=== PATIENT | male | born 1960 | race Caucasian/White ===

== ENCOUNTER 2017-04-11 16:26 | Observation (INO) | payer BC ==
--- NOTE | 2017-04-11 17:13 | PDOC ---
History of Present Illness - General History Source: Patient - History of Present Illness Initial Comments: 04/11/17 17:18 Patient is a 56 y.o.male with a PMH of Atrial Fibrillation (on Eloquis and Metoprolol) who presents today c/o acute onset of palpitations, cough and weakness while driving. Patient states he pulled his car to side of the road and then drove slowly to the hospital. Patient denies any chest pain, shortness of breath, but does endorse diaphoresis. 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 At the time of his diagnosis patient noted he was drinking heavily and sleeping little. Patient notes he has not been sleeping for the past 2-3 days due to anxiety over life stressors. NKDA PMD: Dr. Johnston ([facility]) <Gita Valles - Last Filed: 04/11/17 20:56> <Parish Naqvi - Last Filed: 04/11/17 21:49> - General Chief Complaint: Palpitations Stated Complaint: Blood Pressure Problem Time Seen by Provider: 04/11/17 16:44 Past History - Past Medical History Cardiac Disorders: Yes (AF) COPD: No Diabetes: Yes HTN: Yes Hypercholesterolemia: Yes - Suicide/Smoking/Psychosocial Hx Smoking History: Former smoker Have you smoked in the past 12 months: No Information on smoking cessation initiated: No Hx Alcohol Use: No Drug/Substance Use Hx: No Substance Use Type: None <Gita Valles - Last Filed: 04/11/17 20:56> <Parish Naqvi - Last Filed: 04/11/17 21:49> - Past Medical History Allergies/Adverse Reactions: Allergies Allergy/AdvReac Type Severity Reaction Status Date / Time No Known Allergies Allergy Verified 04/11/17 18:00 Home Medications: Ambulatory Orders Atorvastatin Ca [Lipitor] 40 mg PO HS 04/11/17 Diltiazem HCl [Diltiazem 24Hr Cd] 240 mg PO DAILY 04/11/17 Escitalopram Oxalate [Lexapro -] 5 mg PO DAILY 04/11/17 Glipizide [Glipizide ER] 5 mg PO 04/11/17 Losartan/Hydrochlorothiazide [Losartan-Hctz 50-12.5 mg Tab] 1 each PO DAILY Metformin HCl [Glucophage] 1,000 mg PO BID 04/11/17 Metoprolol Tartrate 50 mg PO HS 04/11/17 Metoprolol Tartrate 100 mg PO AM 04/11/17 Ramipril 5 mg PO DAILY 04/11/17 Review of Systems - Review of Systems Constitutional: Yes: Diaphoresis. No: Fever Respiratory: No: Shortness of Breath Cardiac (ROS): Yes: Palpitations. No: Chest Pain, Lightheadedness, Chest Tightness ABD/GI: No: Constipated, Diarrhea, Nausea, Vomiting <Gita Valles - Last Filed: 04/11/17 20:56> *Physical Exam - Vital Signs Last Vital Signs Temp Pulse Resp BP Pulse Ox 98.4 F 78 20 150/88 97 04/11/17 17:07 04/11/17 17:07 04/11/17 17:07 04/11/17 17:07 04/11/17 17:07 - Physical Exam General Appearance: Yes: Nourished, Obese HEENT: positive: EOMI, CELESTE Respiratory/Chest: positive: Lungs Clear, Normal Breath Sounds. negative: Labored Respiration, Rapid RR, Crackles, Rales, Rhonchi, Stridor, Wheezing Cardiovascular: positive: S1, S2. negative: Edema, JVD, Murmur, Tachycardia Gastrointestinal/Abdominal: positive: Normal Bowel Sounds, Soft Extremity: positive: Normal Capillary Refill, Normal Inspection Integumentary: positive: Normal Color, Dry, Warm Neurologic: positive: renewable energy engineer II-XII NML intact, Fully Oriented, Alert <Gita Valles - Last Filed: 04/11/17 20:56> - Vital Signs Last Vital Signs Temp Pulse Resp BP Pulse Ox 98.4 F 70 19 116/84 96 04/11/17 17:07 04/11/17 19:39 04/11/17 19:39 04/11/17 19:39 04/11/17 19:39 <Parish Naqvi - Last Filed: 04/11/17 21:49> ED Treatment Course - LABORATORY CBC & Chemistry Diagram: 04/11/17 17:50 04/11/17 17:50 <Gita Valles - Last Filed: 04/11/17 20:56> - LABORATORY CBC & Chemistry Diagram: 04/11/17 17:50 04/11/17 17:50 - ADDITIONAL ORDERS Additional order review: Laboratory Results 04/11/17 04/11/17 17:50 17:50 PT with INR 12.30 H INR 1.09 PTT (Actin FS) 27.3 Sodium 136 Potassium 3.6 Chloride 100 Carbon Dioxide 27 Anion Gap 9 BUN 18 Creatinine 0.9 Creat Clearance w eGFR > 60 Random Glucose 263 H Calcium 8.8 Total Bilirubin 0.6 AST 16 ALT 39 Alkaline Phosphatase 72 Creatine Kinase 114 Troponin I 0.05 Total Protein 7.5 Albumin 4.1 04/11/17 17:50 RBC 5.03 MCV 83.4 MCHC 34.2 RDW 14.9 MPV 9.7 Neutrophils % 68.7 Lymphocytes % 18.6 Monocytes % 9.3 Eosinophils % 2.5 Basophils % 0.9 - RADIOLOGY Radiology Studies Ordered: Category Date Time Status CHEST X-RAY PORTABLE* [RAD] Stat Radiology 04/11/17 20:10 Ordered - Medications Given in the ED: ED Medications Discontinued Medications Generic Name Dose Route Start Last Admin Trade Name Freq PRN Reason Stop Dose Admin Aspirin 325 mg 04/11/17 19:42 04/11/17 20:03 Asa - PO 04/11/17 19:43 Not Given ONCE ONE <Parish Naqvi - Last Filed: 04/11/17 21:49> Medical Decision Making - Medical Decision Making 04/11/17 20:40 Patient is a 56 y.o. male with a PMH of AFib who presents with palpitations and lightheadedness. Initial EKG shows A flutter HR 77 ST depressions in Leads V4, V5, V6. 04/11/17 20:54 04/11/17 20:56 <Gita Valles - Last Filed: 04/11/17 20:56> *DC/Admit/Observation/Transfer <Gita Valles - Last Filed: 04/11/17 20:56> - Discharge Dispostion Admit: Yes <Parish Naqvi - Last Filed: 04/11/17 21:49> Diagnosis at time of Disposition: Abnormal EKG, Near syncope Atrial flutter Qualifiers: Atrial flutter type: unspecified Qualified Code(s): I48.92 - Unspecified atrial flutter - Discharge Dispostion Condition at time of disposition: Fair - Referrals Referrals: Aaron Johnston [Primary Care Provider] - - Patient Instructions - Post Discharge Activity
--- NOTE | 2017-04-11 18:10 | PDOC ---
History of Present Illness - General Chief Complaint: Palpitations Stated Complaint: Blood Pressure Problem Time Seen by Provider: 04/11/17 16:44 History Source: Patient Past History - Past Medical History Allergies/Adverse Reactions: Allergies Allergy/AdvReac Type Severity Reaction Status Date / Time No Known Allergies Allergy Verified 04/11/17 18:00 Cardiac Disorders: Yes (AF) COPD: No Diabetes: Yes HTN: Yes Hypercholesterolemia: Yes - Suicide/Smoking/Psychosocial Hx Smoking History: Former smoker Have you smoked in the past 12 months: No Information on smoking cessation initiated: No Hx Alcohol Use: No Drug/Substance Use Hx: No Substance Use Type: None *Physical Exam - Vital Signs Last Vital Signs Temp Pulse Resp BP Pulse Ox 98.4 F 78 20 150/88 97 04/11/17 17:07 04/11/17 17:07 04/11/17 17:07 04/11/17 17:07 04/11/17 17:07 ED Treatment Course - LABORATORY CBC & Chemistry Diagram: 04/11/17 17:50 04/11/17 17:50 *DC/Admit/Observation/Transfer - Referrals Referrals: Aaron Johnston [Primary Care Provider] - - Patient Instructions - Post Discharge Activity
[2017-04-11 18:11] LABS: BASOPHIL 0.9 % (0-2.0); EOSINOPHIL 2.5 % (0-4.5); MCH 28.5 pg (25.7-33.7); MCHC 34.2 g/dl (32.0-35.9); MEAN CELL VOLUME 83.4 fl (80-96); MEAN PLT VOLUME 9.7 fl (7.5-11.1); NEUTROPHILS 68.7 % (42.8-82.8); PLATELET COUNT 240 K/MM3 (134-434); RDW 14.9 % (11.9-15.9); WHITE BLOOD COUNT 7.9 K/mm3 (4.0-10.0)
[2017-04-11 18:34] LABS: INR 1.09 (0.82-1.09); PROTHROMBIN TIME (PATIENT) 12.3 SEC (9.98-11.88)
[2017-04-11 18:37] LABS: ACTIVATED PTT 27.3 SECONDS (26.9-34.4)
--- NOTE | 2017-04-11 18:51 | PDOC ---
Attending Attestation - HPI HPI: 04/11/17 18:52 Pt is a 56 yo M with a PMHx of Atrial Fibrillation (on Eloquis), DM, HTN, HLD who presents to the ED with sudden onset of palpitations today. PCP: Dr. Johnston - Medical Decision Making 04/11/17 18:52 Documentation prepared by Margaret Walker, acting as medical biller for Parish Naqvi MD <Margaret Walker - Last Filed: 04/11/17 18:58> - Resident Resident Name: ReenaGita luu - ED Attending Attestation I have performed the following: I have examined & evaluated the patient, The case was reviewed & discussed with the resident, I agree w/resident's findings & plan, Exceptions are as noted - Physicial Exam PE: 04/11/17 20:35 In the ER, patient is awake and alert, afebrile, hemodynamically stable; nc, atr perrla, eomi cta rrr sft, nt, nd no LEs edema - Medical Decision Making 04/11/17 20:36 Patient is a 56-year-old male with history of atrial fibrillation on eliquis, diabetes and hypertension who presents to the ER after an episode of near- syncope, with palpitations and shortness of breath. In the ER, EKG reveals a flutter with variable conduction, at a heart rate of 77-85, with ST segment depressions in lateral leads which have resolved after. Of observation. CBC is within normal limit. CMP reveals moderate hyperglycemia without evidence of increased anion gap. First set of cardiac enzymes is normal. I suspect ACS. Patient refused aspirin at this time. Case discussed with cardiology. Will place on telemetry/of for further evaluation and treatment. <Parish Naqvi - Last Filed: 04/11/17 20:37>
[2017-04-11 18:56] LABS: ALBUMIN 4.1 g/dl (3.4-5.0); ANION GAP 9 (8-16); CALCIUM 8.8 mg/dL (8.5-10.1); CO2 27 mmol/L (21-32); GLUCOSE,RANDOM 263 mg/dL (74-106)
[2017-04-11 19:13] LABS: ALK PHOS 72 U/L (45-117); BILIRUBIN,TOTAL 0.6 mg/dL (0.2-1.0); CPK 114 IU/L (39-308); CREATININE 0.9 mg/dL (0.7-1.3); SGOT/AST 16 U/L (15-37); SGPT/ALT 39 U/L (12-78); TOT PROT 7.5 g/dl (6.4-8.2)
[2017-04-11 19:20] LABS: TROPONIN I 0.05 ng/ml (0.00-0.05)
[2017-04-11] MEDS ORDERED: ASPIRIN 325 MG TABLET PO ONE (19:42)
[2017-04-11] MEDS ORDERED: ASPIRIN 325 MG TABLET ONE (19:45)
--- NOTE | 2017-04-11 20:58 | HP ---
CHIEF COMPLAINT: Palpitations, Cough and Weakness PCP: Dr Johnston ([facility]) HISTORY OF PRESENT ILLNESS: This is a 56 y/o man with a PMHx of: Afib (on Eliquis, diagnosed 11/2016), HTN, HLD, DM, Anxiety. Who arrived to the ED with palpitations, cough and weakness while driving. Patient states that he began to feel his heart race, then became lightheaded. He reports pulling over, and allowing it to pass before continuing to the hospital. He denies having chest pain or SOB with the event. He does however report having insomnia for the last 2-3 days and feeling very anxious due to life stressors. He denies fever, chills, DAI, AP, N/V/D, constipation, dysuria. Patient reports having a nuclear stress test 1 yr ago, Echo earlier this year- he reports enlarged heart. ER course was notable for: (1) Chest Xray showed- limited exam without no acute cardiopulmonary disease (2) EKG shows A flutter HR 77 ST depressions in Leads V4, V5, V6. 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, [employer] Family History: Father: Pancreatic Ca, age 66 Mother: SD- stents, DM, alive Sister: Lung Ca, Sister: Breast Ca, alive Brother: Cardiomegaly Allergies No Known Allergies Allergy (Verified 04/11/17 18:00) HOME MEDICATIONS: Home Medications Medication Instructions Recorded Atorvastatin Ca [Lipitor] 40 mg PO HS 04/11/17 Diltiazem HCl [Diltiazem 24Hr Cd] 240 mg PO DAILY 04/11/17 Escitalopram Oxalate [Lexapro -] 5 mg PO DAILY 04/11/17 Glipizide [Glipizide ER] 5 mg PO 04/11/17 Losartan/Hydrochlorothiazide 1 each PO DAILY 04/11/17 [Losartan-Hctz 50-12.5 mg Tab] Metformin HCl [Glucophage] 1,000 mg PO BID 04/11/17 Metoprolol Tartrate 50 mg PO HS 04/11/17 Metoprolol Tartrate 100 mg PO AM 04/11/17 Ramipril 5 mg PO DAILY 04/11/17 REVIEW OF SYSTEMS CONSTITUTIONAL: generalized weakness, Absent: fever, chills, diaphoresis, malaise, loss of appetite, weight change HEENT: Absent: rhinorrhea, nasal congestion, throat pain, throat swelling, difficulty swallowing, mouth swelling, ear pain, eye pain, visual changes CARDIOVASCULAR: palpitations Absent: chest pain, syncope, irregular heart rate, lightheadedness, peripheral edema RESPIRATORY: cough Absent: shortness of breath, dyspnea with exertion, orthopnea, wheezing, stridor , hemoptysis GASTROINTESTINAL: Absent: abdominal pain, abdominal distension, nausea, vomiting, diarrhea, constipation, melena, hematochezia GENITOURINARY: Absent: dysuria, frequency, urgency, hesitancy, hematuria, flank pain, genital pain MUSCULOSKELETAL: Absent: myalgia, arthralgia, joint swelling, back pain, neck pain SKIN: Absent: rash, itching, pallor HEMATOLOGIC/IMMUNOLOGIC: Absent: easy bleeding, easy bruising, lymphadenopathy, frequent infections ENDOCRINE: Absent: unexplained weight gain, unexplained weight loss, heat intolerance, cold intolerance NEUROLOGIC: Absent: headache, focal weakness or paresthesias, dizziness, unsteady gait, seizure, mental status changes, bladder or bowel incontinence PSYCHIATRIC: Absent: anxiety, depression, suicidal or homicidal ideation, hallucinations. PHYSICAL EXAMINATION Vital Signs - 24 hr 04/11/17 04/11/17 17:07 19:39 Temperature 98.4 F Pulse Rate 78 Pulse Rate [ 70 Apical] Respiratory 20 19 Rate Blood Pressure 150/88 Blood Pressure 116/84 [Arm] O2 Sat by Pulse 97 96 Oximetry (%) GENERAL: Obese, awake, alert, and fully oriented, in no acute distress. HEAD: Normal with no signs of trauma. EYES: Pupils equal, round and reactive to light, extraocular movements intact, sclera anicteric, conjunctiva clear. No lid lag. EARS, NOSE, THROAT: Ears normal, nares patent, oropharynx clear without exudates. Moist mucous membranes. NECK: Normal range of motion, supple without lymphadenopathy, JVD, or masses. LUNGS: Breath sounds equal, clear to auscultation bilaterally. No wheezes, and no crackles. No accessory muscle use. HEART: Irregular rate and rhythm, normal S1 and S2 without murmur, rub or gallop. ABDOMEN: Soft, nontender, not distended, normoactive bowel sounds, no guarding, no rebound, no masses. No hepatomegaly or splenomegaly. MUSCULOSKELETAL: Normal range of motion at all joints. No bony deformities or tenderness. No CVA tenderness. UPPER EXTREMITIES: 2+ pulses, warm, well-perfused. No cyanosis. No clubbing. No peripheral edema. LOWER EXTREMITIES: 2+ pulses, warm, well-perfused. No calf tenderness. No peripheral edema. NEUROLOGICAL: Cranial nerves II-XII intact. Normal speech. Normal gait. PSYCHIATRIC: Cooperative. Good eye contact. Appropriate mood and affect. SKIN: Warm, dry, normal turgor, no rashes or lesions noted, normal capillary refill. Laboratory Results - last 24 hr 04/11/17 04/11/17 04/11/17 17:50 17:50 17:50 WBC 7.9 RBC 5.03 Hgb 14.4 Hct 42.0 MCV 83.4 MCH 28.5 MCHC 34.2 RDW 14.9 Plt Count 240 MPV 9.7 Neutrophils % 68.7 Lymphocytes % 18.6 Monocytes % 9.3 Eosinophils % 2.5 Basophils % 0.9 PT with INR 12.30 H INR 1.09 PTT (Actin FS) 27.3 Sodium 136 Potassium 3.6 Chloride 100 Carbon Dioxide 27 Anion Gap 9 BUN 18 Creatinine 0.9 Creat Clearance w eGFR > 60 Random Glucose 263 H Calcium 8.8 Magnesium Total Bilirubin 0.6 AST 16 ALT 39 Alkaline Phosphatase 72 Creatine Kinase 114 Troponin I 0.05 Total Protein 7.5 Albumin 4.1 04/11/17 19:30 WBC RBC Hgb Hct MCV MCH MCHC RDW Plt Count MPV Neutrophils % Lymphocytes % Monocytes % Eosinophils % Basophils % PT with INR INR PTT (Actin FS) Sodium Potassium Chloride Carbon Dioxide Anion Gap BUN Creatinine Creat Clearance w eGFR Random Glucose Calcium Magnesium 1.9 Total Bilirubin AST ALT Alkaline Phosphatase Creatine Kinase Troponin I Total Protein Albumin ASSESSMENT/PLAN: This is a 56 y/o man with a PMHx of: Afib (on Eliquis), HTN, HLD, DM. Placed on Tele Observation for Palpitations, Near Syncope for further evaluation of their emergent condition. FEN - Tolerates PO Fluids - Replete lytes prn - Low Na Diet Code Status: Full Code Dispo: Tele Observation Problem List - Problem (1) Palpitations Assessment/Plan: - Likely secondary to Afib, new aflutter vs Anxiety - Tele monitoring - Appreciate Cardiology Consult - Echo check wall motion - TSH - Asa Code(s): R00.2 - PALPITATIONS (2) Near syncope Assessment/Plan: - Likely secondary to Arrhythmia - Tele monitoring - Serial enzymes - Echo in am - Appreciate Cardiology Consult - Asa - EKG showed Code(s): R55 - SYNCOPE AND COLLAPSE (3) A-fib Assessment/Plan: -Tele monitoring - [id number] Score 2 - EKG reviewed - Continue Eliquis, Metoprolol Code(s): I48.91 - UNSPECIFIED ATRIAL FIBRILLATION (4) Atrial flutter Assessment/Plan: - See Above Code(s): I48.92 - UNSPECIFIED ATRIAL FLUTTER Qualifiers: Atrial flutter type: unspecified Qualified Code(s): I48.92 - Unspecified atrial flutter (5) Abnormal EKG Assessment/Plan: - EKG reviewed - Continue tele monitoring - Will obtain old records to compare when available - Echo - Appreciate Cardiology input Code(s): R94.31 - ABNORMAL ELECTROCARDIOGRAM [ECG] [EKG] (6) Anxiety Assessment/Plan: - Continue Valium prn Code(s): F41.9 - ANXIETY DISORDER, UNSPECIFIED (7) DVT prophylaxis Assessment/Plan: -OOB - SCDs Code(s): LAJ8792 - Visit type - Emergency Visit Emergency Visit: Yes ED Registration Date: 04/11/17 Care time: The patient presented to the Emergency Department on the above date and was hospitalized for further evaluation of their emergent condition. - New Patient This patient is new to me today: Yes Date on this admission: 04/11/17 - Critical Care Critical Care patient: No
[2017-04-11] MEDS: INSULIN SLIDING SCALE (NOVOLOG) 1 VIAL SQ SCH (23:47)
[2017-04-12] MEDS ORDERED: METOPROLOL TARTRATE 50 MG TABLET (FP) PO ONE (00:01)
[2017-04-12] MEDS ORDERED: DOXAZOSIN MESYLATE 4 MG TABLET PO ONE (00:12)
[2017-04-12 00:27] LABS: TROPONIN I 0.06 ng/ml (0.00-0.05)
[2017-04-12] MEDS: diazePAM 5 MG TABLET PO PRN ×2 (00:51→10:11)
[2017-04-12] MEDS: APIXABAN 5 MG TABLET PO SCH ×2 (00:51→09:20)
[2017-04-12 04:01] VITALS: BMI 34.4
[2017-04-12] MEDS: INSULIN SLIDING SCALE (NOVOLOG) 1 VIAL SQ SCH ×3 (06:19→17:31)
[2017-04-12] MEDS ORDERED: METOPROLOL TARTRATE 50 MG TABLET (FP) PO SCH ×3 (07:00→22:00)
[2017-04-12 07:02] LABS: BASOPHIL 0.4 % (0-2.0); MCH 28.2 pg (25.7-33.7); MCHC 33.4 g/dl (32.0-35.9); MEAN CELL VOLUME 84.3 fl (80-96); MEAN PLT VOLUME 9.8 fl (7.5-11.1); NEUTROPHILS 62.3 % (42.8-82.8); PLATELET COUNT 231 K/MM3 (134-434); RDW 14.7 % (11.9-15.9); WHITE BLOOD COUNT 8.4 K/mm3 (4.0-10.0)
[2017-04-12 07:31] LABS: ANION GAP 10 (8-16); CALCIUM 8.8 mg/dL (8.5-10.1); CO2 25 mmol/L (21-32); GLUCOSE,RANDOM 286 mg/dL (74-106)
[2017-04-12 07:34] LABS: CREATININE 0.8 mg/dL (0.7-1.3); PHOSPHOROUS 3.5 mg/dL (2.5-4.9)
[2017-04-12] MEDS ORDERED: diazePAM 5 MG TABLET PO PRN (07:52)
[2017-04-12 09:06] LABS: CPK 107 IU/L (39-308); TROPONIN I 0.06 ng/ml (0.00-0.05)
[2017-04-12 09:32] LABS: CHOLESTEROL 137 mg/dL (50-200)
[2017-04-12] MEDS ORDERED: ASPIRIN 81 MG CHEWABLE TABLETS PO SCH (10:00)
[2017-04-12] MEDS ORDERED: HYDROCHLOROTHIAZIDE 12.5 MG CAPSULE (FP) PO SCH (10:00)
[2017-04-12] MEDS ORDERED: ESCITALOPRAM OXALATE 10 MG TABLET (FP) PO SCH (10:00)
--- NOTE | 2017-04-12 10:44 | PN ---
Progress Note (short form) - Note Progress Note: Subjective: The patient was seen and examined at the bedside, he denies any palpitations or chest pain right now, however states she he is still experiencing the palpitations often. Current Medications Generic Name Dose Route Start Last Admin Trade Name Freq PRN Reason Stop Dose Admin Apixaban 5 mg 04/11/17 23:45 04/12/17 09:20 Eliquis - PO 5 mg BID DREAD Administration Aspirin 81 mg 04/12/17 10:00 04/12/17 09:20 Asa - PO 81 mg DAILY DREAD Administration Atorvastatin Calcium 40 mg 04/12/17 22:00 Lipitor - PO HS DREAD Diazepam 10 mg 04/12/17 00:08 04/12/17 10:11 Valium - PO 10 mg DAILY PRN Administration ANXIETY Diltiazem HCl 240 mg 04/12/17 10:00 04/12/17 09:21 Cardizem Cd - PO 240 mg DAILY DREAD Administration Doxazosin Mesylate 8 mg 04/12/17 22:00 Cardura - PO HS DREAD Escitalopram Oxalate 5 mg 04/12/17 10:00 04/12/17 09:20 Lexapro - PO 5 mg DAILY DREAD Administration Hydrochlorothiazide 12.5 mg 04/12/17 10:00 04/12/17 09:21 Hctz - PO 12.5 mg DAILY DREAD Administration Insulin Aspart 1 vial 04/11/17 22:00 04/12/17 06:19 Novolog Vial Sliding Scale - SQ 6 units ACHS DREAD Administration Protocol Metoprolol Tartrate 50 mg 04/12/17 22:00 Lopressor - PO HS DREAD Metoprolol Tartrate 100 mg 04/12/17 10:00 04/12/17 09:22 Lopressor - PO 100 mg DAILY DREAD Administration Ramipril 5 mg 04/12/17 22:00 Altace - PO HS DREAD Objective: Vital Signs Period Temp Pulse Resp BP Sys/Villaseñor Pulse Ox Last 24 Hr 98.1 F-98.7 F 70-118 18-20 116-165/78-100 96-98 Physical Exam: General: NAD, A&Ox3 HEENT:Right eye blindness Lungs: CTA bilaterally Heart: Irregularly irregular Abd: Soft, non-tender, non-distended. Normoactive bowel sounds Ext: Warm, well-perfused. 2+ DP/PT bilaterally. No edema CBCD WBC 8.4 K/mm3 (4.0-10.0) 04/12/17 05:10 RBC 4.93 M/mm3 (4.00-5.60) 04/12/17 05:10 Hgb 13.9 GM/dL (11.7-16.9) 04/12/17 05:10 Hct 41.6 % (35.4-49) 04/12/17 05:10 MCV 84.3 fl (80-96) 04/12/17 05:10 MCHC 33.4 g/dl (32.0-35.9) 04/12/17 05:10 RDW 14.7 % (11.9-15.9) 04/12/17 05:10 Plt Count 231 K/MM3 (134-434) 04/12/17 05:10 MPV 9.8 fl (7.5-11.1) 04/12/17 05:10 CMP Sodium 137 mmol/L (136-145) 04/12/17 05:10 Potassium 3.9 mmol/L (3.5-5.1) 04/12/17 05:10 Chloride 102 mmol/L (98-107) 04/12/17 05:10 Carbon Dioxide 25 mmol/L (21-32) 04/12/17 05:10 Anion Gap 10 (8-16) 04/12/17 05:10 BUN 16 mg/dL (7-18) 04/12/17 05:10 Creatinine 0.8 mg/dL (0.7-1.3) 04/12/17 05:10 Creat Clearance w eGFR > 60 (>60) 04/11/17 17:50 Random Glucose 286 mg/dL (74-106) H 04/12/17 05:10 Calcium 8.8 mg/dL (8.5-10.1) 04/12/17 05:10 Total Bilirubin 0.6 mg/dL (0.2-1.0) 04/11/17 17:50 AST 16 U/L (15-37) 04/11/17 17:50 ALT 39 U/L (12-78) 04/11/17 17:50 Alkaline Phosphatase 72 U/L (45-117) 04/11/17 17:50 Total Protein 7.5 g/dl (6.4-8.2) 04/11/17 17:50 Albumin 4.1 g/dl (3.4-5.0) 04/11/17 17:50 CARDIAC ENZYMES Creatine Kinase 107 IU/L (39-308) 04/12/17 05:10 Troponin I 0.06 ng/ml (0.00-0.05) H 04/12/17 05:10 Assessment: This is a 56 year old male with PMHx of A.fib on Eliquis (diagnosed 11/2016), HTN, hyperlipidemia, DM, anxiety, who presented to the ED with palpitations, weakness and lightheadedness while driving. Plan: 1) Near Syncope - Head CT: with no acute intracranial pathology - F/u ECHO - F/u carotid doppler - F/u cardiology consult 2) A.fib with RVR - Continue Lopressor 100mg po qAM - Continue Lopressor 50mg qHS - Continue Diltiazem 240mg po daily - Continue Eliquis 5mg po bid - F/u cardiology consult 3) Boarderline elevated troponins - Trop 0.06. Continue to trend - EKG with a.flutter with variable a-v block with premature ventricular or aberrantly conducted complexes, prolonged QT - Continue ASA - F/u further cardiology recommendations 4) DM - BGM ACHS - ISS ACHS 5) Anxiety - Continue Valium - Continue Lexapro 6) F/E/N: - Monitor electrolytes - Sodium controlled diet 7) Prophylaxis: - On Eliquis 8) Dispo: - Requires continued inpatient care CODE STATUS: FULL CODE Visit type - Emergency Visit Emergency Visit: Yes ED Registration Date: 04/11/17 Care time: The patient presented to the Emergency Department on the above date and was hospitalized for further evaluation of their emergent condition. - New Patient This patient is new to me today: Yes Date on this admission: 04/12/17 - Critical Care Critical Care patient: No
--- NOTE | 2017-04-12 11:07 | EKG ---
Test Reason : Blood Pressure : / mmHG Vent. Rate : 085 BPM Atrial Rate : 278 BPM P-R Int : 000 ms QRS Dur : 086 ms QT Int : 434 ms P-R-T Axes : 080 -36 101 degrees QTc Int : 516 ms ATRIAL FLUTTER WITH VARIABLE A-V BLOCK WITH PREMATURE VENTRICULAR OR ABERRANTLY CONDUCTED COMPLEXES LEFT AXIS DEVIATION PULMONARY DISEASE PATTERN NONSPECIFIC ST AND T WAVE ABNORMALITY PROLONGED QT ABNORMAL ECG WHEN COMPARED WITH ECG OF 11-APR-2017 16:30, T WAVE INVERSION LESS EVIDENT IN LATERAL LEADS Confirmed by RONI SHEPHERD MD ([id number]) on 04/12/2017 11:07:37 AM Referred By: Confirmed By:RONI SHEPHERD MD
[2017-04-12 11:31] LABS: THYROID STIMULATING HORMONE 0.74 uIU/ml (0.358-3.74)
--- NOTE | 2017-04-12 12:32 | EKG ---
Test Reason : Blood Pressure : / mmHG Vent. Rate : 136 BPM Atrial Rate : 136 BPM P-R Int : 000 ms QRS Dur : 082 ms QT Int : 334 ms P-R-T Axes : 000 -36 104 degrees QTc Int : 502 ms SUPRAVENTRICULAR TACHYCARDIA LEFT AXIS DEVIATION ABNORMAL ECG WHEN COMPARED WITH ECG OF 11-APR-2017 18:06, SINUS RHYTHM HAS REPLACED ATRIAL FLUTTER VENT. RATE HAS INCREASED BY [address] ELEVATION NOW PRESENT IN INFERIOR LEADS Confirmed by RONI SHEPHERD MD ([id number]) on 04/12/2017 12:32:08 PM Referred By: Confirmed By:RONI SHEPHERD MD
[2017-04-12 13:01] LABS: TROPONIN I 0.06 ng/ml (0.00-0.05)
[2017-04-12 13:51] VITALS: BP 149/79; PULSE 105; TEMP 98.7
--- NOTE | 2017-04-12 16:19 | EKG ---
Test Reason : Blood Pressure : / mmHG Vent. Rate : 091 BPM Atrial Rate : 241 BPM P-R Int : 000 ms QRS Dur : 084 ms QT Int : 368 ms P-R-T Axes : 130 -31 141 degrees QTc Int : 452 ms ATRIAL FLUTTER WITH VARIABLE A-V BLOCK LEFT AXIS DEVIATION PULMONARY DISEASE PATTERN ABNORMAL ECG WHEN COMPARED WITH ECG OF 12-APR-2017 10:24, ATRIAL FLUTTER HAS REPLACED SINUS RHYTHM VENT. RATE HAS DECREASED BY [address] NOW DEPRESSED IN INFERIOR LEADS Confirmed by RONI SHEPHERD MD ([id number]) on 04/12/2017 4:19:28 PM Referred By: Confirmed By:RONI SHEPHERD MD
--- NOTE | 2017-04-12 16:56 | CON.CARD ---
Consult Consult Specialty:: Cardiology - History of Present Illness Chief Complaint: AFIB. An episode of lightheadedness History of Present Illness: This is a 56 year old male with a PMH of Paroxysmal AFIB and is on rate control with a beta franci and a calcium channel franci. He is on Eliquis for AC. He was driving and noted palpitations and took his pulse confirming rapid AFIB. He pulled over to the side of the road and felt light headed and presented to the ED. His EKG revealed Atrial Flutter with variable AV block at a rate of 91 BPM, with LAD, and NSSTTW changes. No chest pain Troponin noted 0.06 Echocardiogram NL LV fxn, LVH, LAE Presently comfortable and requesting discharge home to follow up with his outpatient cardiologists and to discuss AFIB ablation. - Alcohol/Substance Use Hx Alcohol Use: Yes (occassional) - Smoking History Smoking history: Former smoker Have you smoked in the past 12 months: No Home Medications - Allergies Allergies/Adverse Reactions: Allergies Allergy/AdvReac Type Severity Reaction Status Date / Time No Known Allergies Allergy Verified 04/11/17 18:00 - Home Medications Home Medications: Ambulatory Orders Apixaban [Eliquis] 5 mg PO BID 04/11/17 Atorvastatin Ca [Lipitor] 40 mg PO DAILY 04/11/17 Diazepam [Valium] 10 mg PO PRN PRN 04/11/17 Diltiazem HCl [Diltiazem 24Hr Cd] 240 mg PO DAILY 04/11/17 Doxazosin Mesylate 8 mg PO HS 04/11/17 Escitalopram Oxalate [Lexapro -] 5 mg PO DAILY 04/11/17 Glipizide [Glipizide ER] 5 mg PO BID 04/11/17 Hydrochlorothiazide [Hctz -] 12.5 mg PO DAILY 04/11/17 Metformin HCl [Glucophage] 1,000 mg PO BID 04/11/17 Metoprolol Tartrate 50 mg PO HS 04/11/17 Metoprolol Tartrate 100 mg PO AM 04/11/17 Ramipril 5 mg PO HS 04/11/17 Review of Systems Unable to obtain ROS, reason: As per HPI Vital Signs: Vital Signs Temperature 98.7 F 04/12/17 13:50 Pulse Rate 105 H 04/12/17 13:50 Respiratory Rate 18 04/12/17 13:50 Blood Pressure 149/79 04/12/17 13:50 O2 Sat by Pulse Oximetry (%) 98 04/12/17 09:00 Constitutional: Yes: No Distress Neck: Yes: WNL Respiratory: Yes: CTA Bilaterally Gastrointestinal: Yes: Soft Cardiovascular: Yes: Pulse Irregular (NL S1S2, no MRHG) Edema: No Neurological: Yes: Alert, Oriented (Grossly nonfocal) - Other Data Labs, Other Data: CBC, BMP 04/12/17 05:10 04/12/17 05:10 INR, PTT INR 1.09 (0.82-1.09) 04/11/17 17:50 Troponin, BNP 04/11/17 04/12/17 04/12/17 17:50 00:09 05:10 Troponin I 0.05 0.06 H 0.06 H 04/12/17 04/12/17 05:10 12:10 Troponin I Cancelled 0.06 H Troponin, BNP 04/11/17 04/12/17 04/12/17 17:50 00:09 05:10 Troponin I 0.05 0.06 H 0.06 H 04/12/17 04/12/17 05:10 12:10 Troponin I Cancelled 0.06 H Assessment/Plan AFIB Continue current meds for rate control Continue Eliquis for AC Since medical therapy in not controlling his symptoms I recommend atrial fibrillation ablation The patient wants to be discharged and 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
--- NOTE | 2017-04-12 17:33 | DS ---
Physical Examination Vital Signs: Vital Signs Temperature 98.7 F 04/12/17 13:50 Pulse Rate 105 H 04/12/17 13:50 Respiratory Rate 18 04/12/17 13:50 Blood Pressure 149/79 04/12/17 13:50 O2 Sat by Pulse Oximetry (%) 98 04/12/17 09:00 Labs: CBC, BMP 04/12/17 05:10 04/12/17 05:10 Discharge Summary Reason For Visit: ACUTE CORONARY SYNDROME Current Active Problems A-fib (Acute) Abnormal EKG (Acute) Anxiety (Acute) Atrial flutter (Acute) DVT prophylaxis (Acute) Near syncope (Acute) Palpitations (Acute) Hospital Course: Patient's heart rate in 80 on monitor. Discussed ECHO, EKG, and trops 0.[address] Hernandez (cardiology). 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 Condition: Improved - Instructions Diet, Activity, Other Instructions: Please return to the ED with new, persistent, or worsening symptoms. Please follow-up with your pcp within 1 week. Please follow-up with Dr. Jimenez (cardiology) as you have planned tomorrow. Referrals: Aaron Johnston [Primary Care Provider] - 1 Week Disposition: HOME - Home Medications Comprehensive Discharge Medication List: Ambulatory Orders Apixaban [Eliquis] 5 mg PO BID 04/11/17 Atorvastatin Ca [Lipitor] 40 mg PO DAILY 04/11/17 Diazepam [Valium] 10 mg PO PRN PRN 04/11/17 Diltiazem HCl [Diltiazem 24Hr Cd] 240 mg PO DAILY 04/11/17 Doxazosin Mesylate 8 mg PO HS 04/11/17 Escitalopram Oxalate [Lexapro -] 5 mg PO DAILY 04/11/17 Glipizide [Glipizide ER] 5 mg PO BID 04/11/17 Hydrochlorothiazide [Hctz -] 12.5 mg PO DAILY 04/11/17 Metformin HCl [Glucophage] 1,000 mg PO BID 04/11/17 Metoprolol Tartrate 50 mg PO HS 04/11/17 Metoprolol Tartrate 100 mg PO AM 04/11/17 Ramipril 5 mg PO HS 04/11/17
[2017-04-12] MEDS ORDERED: DOXAZOSIN MESYLATE 4 MG TABLET PO SCH (22:00)
[2017-04-12] MEDS ORDERED: ATORVASTATIN CA 40 MG TABLET (FP) PO SCH (22:00)
[2017-04-12] MEDS ORDERED: RAMIPRIL 5 MG CAPSULE (FP) PO SCH (22:00)
== END 2017-04-12 18:47 | disposition home or self-care (01) ==
LOC: JER 16:26 → JERBED 21:50 → J4W 23:46
PROVIDERS: ADMIT Internal Medicine; ATTEND Registered Nurse
PROC: 3E013VG Introduction of Insulin into Subcutaneous Tissue, Percutaneous Approach (ICD-10-PCS; principal; 2017-04-11)
DX: I48.91 Unspecified atrial fibrillation (principal); R94.31 Abnormal electrocardiogram [ECG] [EKG]; I48.92 Unspecified atrial flutter; R55 Syncope and collapse; I10 Essential (primary) hypertension; E11.9 Type 2 diabetes mellitus without complications; E78.5 Hyperlipidemia, unspecified; F41.9 Anxiety disorder, unspecified; M54.5 Low back pain; G89.29 Other chronic pain; R00.2 Palpitations; R77.8 Other specified abnormalities of plasma proteins; E66.9 Obesity, unspecified; Z68.34 Body mass index [BMI] 34.0-34.9, adult; Z79.01 Long term (current) use of anticoagulants; Z87.891 Personal history of nicotine dependence; Z79.84 Long term (current) use of oral hypoglycemic drugs; Z79.4 Long term (current) use of insulin
CPT/HCPCS: 36415; 70450-TC; 71010-TC; 80048; 80053; 80061; 82550; 83036; 83721; 83735; 84100; 84443; 84484; 85025; 85610; 85730; 93005; 93010; 93306-TC; 93880-TC; 99285-25; G0378